=== PATIENT | female | born 1990 | race African-American/Black ===

== ENCOUNTER 2023-10-07 20:13 | Emergency (ER) | payer OTHER, SELFPAY ==
--- NOTE | ~2023-10-07 | CT_ITS ---
EXAMINATION: CT abdomen pelvis w con DATE: 10/07/2023 21:47 INDICATION: abrupt RLQ pain; appy versus torsion TECHNIQUE: Computed tomography (CT) of the abdomen and pelvis was performed with 100 mL Omnipaque-350 intravenous contrast. Automated exposure control and iterative reconstruction technique were employe d. The dose-length product was 660.20 mGy-cm. COMPARISON: Pelvic ultrasound 10/07/2023. FINDINGS: Lower thorax: Innumerable small, round, but this pulmonary air cysts. Liver: Normal. Biliary/Gallbladder: Gallbladder is normal. No bile duct dilation. Pancreas: No mass or duct dilation. Spleen: Normal. Adrenals:No mass. Kidneys: Delayed right nephrogram with mild perinephric stranding, mild hydronephrosis. Nonobstructin g punctate left lower pole calcification. GI tract: No small or large bowel dilation. Normal appendix. Mesentery/Peritoneum: No ascites, mass, or free air. Retroperitoneum: No mass. Pelvis: Punctate, 2 mm calcification in the right UVJ. The bladder is mostly empty. Normal-appearing uterus and ovaries. Soft Tissues: Soft tissues and body wall unremarkable. Bones: No acute osseous finding. IMPRESSION: 2 mm right UVJ stone causing mild obstructive uropathy. 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 Reviewed, dictated and finalized at location K. ITUTIONAL ASSET MANAGER IMPRESSION: 2 mm right UVJ stone causing mild obstructive uropathy. 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
--- NOTE | ~2023-10-07 | US_ITS ---
EXAMINATION: US pelvic complete w TV DATE: 10/07/2023 21:33 INDICATION: acute RLQ pain; concern for torsion vs ectopic -no preg test TECHNIQUE: Multiple transabdominal and endovaginal sonographic images of the pelvis were obtained. COMPARISON: None. FINDINGS: Uterus: 9.3 x 4.4 x 5.3 cm. Endometrial complex measures 3 mm. Heterogeneous and ill-defined 3.0 x 1. 6 x 2.7 cm area in the anterior uterine body/fundus. Right Ovary: 2.8 x 2.2 x 2.4 cm. Vascular flow is present. No adnexal mass. Left Ovary: 3.0 x 2.1 x 1.7 cm. Vascular flow is present. No adnexal mass. There is no free fluid in the pelvis. IMPRESSION: Ill-defined heterogeneous lesion in the anterior uterine body and fundus may represent an atypical ap pearance of a uterine fibroid or focal adenomyosis. Otherwise normal pelvic ultrasound findings. Reviewed, dictated and finalized at location K. BAKER IMPRESSION: Ill-defined heterogeneous lesion in the anterior uterine body and fundus may re present an atypical appearance of a uterine fibroid or focal adenomyosis. Otherwise normal pelvic ultrasound findings.
[2023-10-07 20:25] VITALS: BP 155/98; PULSE 107; TEMP 36.6; O2SAT 100
--- NOTE | 2023-10-07 20:50 | ED.ABDPAIN ---
HPI - Abdominal Pain General Chief Complaint: Abdominal Pain Stated Complaint: Right lower quadrant pain, vomiting Time Seen by Provider: 10/07/23 20:36 Source: patient and family (partner) Limitations: no limitations History of Present Illness HPI narrative: This is a 33-year-old -0-0-2 female who presents with acute onset right lower quadrant abdominal pain starting just prior to arrival. Patient states she was putting one of her children in [facility] when she experienced this pain acutely, approximately 1 hour ago. It is associated with nausea and she has had approximately 7 episodes of nonbloody but now bilious emesis. She states this has never happened before. Her last oral intake was dinner at approximately 6 PM. She recently had her last menstrual period which just stopped yesterday but was otherwise normal in duration flow. She does not currently have an appetite due to her pain. Her last bowel movement was earlier tonight and she denies any blood in it. She denies any nasir vaginal bleeding or discharge although she did have some light spotting earlier today which she attributed to her the tail end of her menses. Sexually active with who has had a vasectomy. Home medications include Lexapro 5mg and Vyvanse. Related Data Allergies Allergy/AdvReac Type Severity Reaction Status Date / Time No Known Allergies Allergy Verified 10/07/23 20:56 PMFSH Past Medical History Medical History Post depression Surgical History Surgical History (Updated 10/07/23 @ 22:26 by Bisi Braden MD) S/P ACL reconstruction Family History Family History Mother Epilepsy Glaucoma Kidney stone Sibling Malignant hyperthermia Social History Social History Smoking status: Never smoker Alcohol intake: current Alcohol use details: occasional/social Substance use: never Living arrangements: with family Additional living arrangements comments: and 2 children Occupation/Education: 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 Exam Const: General: healthy appearing, alert, diaphoretic (across face) and ill appearing (appears in distress) acutely; No confusion Nutritional Appearance: well nourished Orientation/consciousness: patient oriented x3 Limitations: no limitations HENMT: Head: normal to inspection Other: gross auditory acuity intact Neck: Neck: normal visual inspection Resp: Effort & Inspection: normal respiratory effort, not labored, no retractions and not tachypneic Cardio: Rate: tachycardic GI: Inspection: non-distended GI Palp: Yes Soft to palpation, Yes Tenderness to palpation present (GI), Yes Guarding due to palpation present (GI) and No Rigid due to palpation Other: Rovsing sign positive. : General: Yes bladder normal to palpation Skin: General skin exam: normal color, no jaundice and no pallor Rashes: no rashes Wounds: no wounds Neuro: General: patient oriented x3 and moves all extremities Extrem: General: normal to inspection Psych: Mental Status: mental status grossly normal Affect: normal affect Attitude: cooperative Course Vital Signs Vital signs: Vital Signs Temperature 97.9 F 10/07/23 20:25 Pulse Rate 107 H 10/07/23 20:25 Blood Pressure 155/98 H 10/07/23 20:25 Pulse Oximetry 100 10/07/23 20:25 Oxygen Delivery Room Air 10/07/23 20:25 Temperature 97.9 F 10/07/23 20:25 Pulse Rate 92 10/07/23 23:46 Respiratory Rate 15 10/07/23 23:46 Blood Pressure 104/66 10/07/23 23:46 Pulse Oximetry 100 10/07/23 23:46 Oxygen Delivery Room Air 10/07/23 20:25 MDM - Abdominal Pain MDM Narrative Medical decision making narrative: This patient presents with acute RLQ abdominal pain. Ciarra
[2023-10-07 20:51] LABS: Basophils Absolute Auto 0.1 K/mm3 (0.0-0.1); Basophils Percent Auto 0.5 % (0.2-1.2); Eosinophils Absolute Auto 0.2 K/mm3 (0-0.3); Eosinophils Percent Auto 1.7 % (0-4.4); Hemoglobin 13.8 g/dL (12.0-15.0); Immature Granulocyte Absolute 0.03 K/mm3 (0.00-0.031); Immature Granulocyte Percent A 0.3 % (0-0.5); Lymphocytes Absolute Auto 3.96 K/mm3 (0.9-3.2); Lymphocytes Percent Auto 34.9 % (18.3-44.2); Mean Corpuscular HGB Conc 32.1 g/dl (32-36); Mean Corpuscular Hemoglobin 28.3 pg (26-34); Mean Corpuscular Volume 88.3 fl (80-100); Mean Platelet Volume 9.4 fl (7.4-10.4); Monocytes Absolute Auto 0.8 K/mm3 (0.1-0.6); Monocytes Percent Auto 6.8 % (2.6-8.5); Neutrophils Absolute Auto 6.3 K/mm3 (1.3-6.7); Neutrophils Percent Auto 55.8 % (45.5-73.1); Platelet Count Result 345 k/mm3 (150-375); Red Blood Count 4.87 M/mm3 (4.2-5.4); White Blood Count 11.4 K/mm3 (4.5-10.0)
[2023-10-07] MEDS: ONDANSETRON INJ 4 MG/2 ML VIAL IV PUSH (20:56)
[2023-10-07] MEDS: MORPHINE SULFATE (*CRX) 4 MG/ML INJ IV PUSH (20:56)
[2023-10-07] MEDS: SODIUM CHLORIDE 0.9% IV 1,000 ML 999 ML IV CONT (20:57)
[2023-10-07 21:04] LABS: Alanine Aminotransferase 21 U/L (6-35); Albumin Level 4.8 g/dL (3.5-5.1); Alkaline Phosphatase 98 U/L (38-126); Anion Gap 8 mmol/L (8-16); Aspartate Amino Transferase 25 U/L (14-36); Bilirubin,Total 0.5 mg/dL (0.2-1.3); Blood Urea Nitrogen 12 mg/dL (7-17); Calcium 9.4 mg/dL (8.4-10.2); Carbon Dioxide 25 mmol/L (22-30); Chloride 106 mmol/L (98-107); Estimated CRCL calculation 86 ml/min; Estimated Glomerular Filt Rate > 60; Glucose 113 mg/dL (65-110); Lipase 120 U/L (23-300); Potassium 3.5 mmol/L (3.4-5.0); Sodium 139 mmol/L (137-145)
[2023-10-07 21:08] LABS: Appearance Urine Turbid (Clear); Bacteria Urine Rare /hpf; Bilirubin Urine Negative (Negative); Blood Urine 3+ (Negative); Color Urine Yellow (Yellow); Glucose Urine UA Negative (Negative); Ketones Urine Trace mg/dL (Negative); Leukocyte Esterase Ur Trace LEU/UL (Negative); Need Manual Microscopic Reviewed; Nitrate Urine Negative (Negative); Non Pathogenic Casts 0-2; Protein Urine Trace mg/dL (Negative); RBC Urine 51-100 /hpf (0-2); Specific Grav Ur 1.024 (1.001-1.035); Squamous Epithelial Cell Urine Moderate /hpf (Few); WBC Urine 0-5 /hpf; pH Urine 7.5 (5.0-9.0)
[2023-10-07 21:09] LABS: Add Urine Microscopic? YES
[2023-10-07 21:22] VITALS: BP 126/66; PULSE 95; RESP 18; O2SAT 100
[2023-10-07 21:47] LABS: Beta HCG Quantitative < 2.39 mIU/ML
[2023-10-07] MEDS: PROCHLORPERAZINE EDISYLATE 10 MG/2 ML VIAL IV PUSH (22:12)
[2023-10-07] MEDS: SODIUM CHLORIDE 0.9% IV 100 ML 999 ML (22:13)
[2023-10-07] MEDS: KETOROLAC 15 MG/ML VIAL (*BKC) IV PUSH (22:25)
[2023-10-07 23:46] VITALS: BP 104/66; PULSE 92; RESP 15; O2SAT 100
== END 2023-10-07 23:47 | disposition home or self-care (01) ==
PROVIDERS: Emergency Provider Student in an Organized Health Care Education/Training Program
DX: N13.9 Obstructive and reflux uropathy, unspecified (principal); N20.1 Calculus of ureter; J84.81 Lymphangioleiomyomatosis
CPT/HCPCS: 36415; 74177; 76830; 76856; 80053; 81001; 81025; 83690; 84702; 85025; 96361; 96374; 96375; 99284; J0780; J1885; J2270; J2405; J7030; Q9967

== ENCOUNTER 2023-11-21 15:46 | Emergency (ER) | payer OTHER, SELFPAY ==
[2023-11-21] VITALS (7 sets, daily range): BP systolic 132–158; BP diastolic 68–91; PULSE 95–113; RESP 12–17; TEMP 36.7–39.2; O2SAT 94–96
--- NOTE | ~2023-11-21 | CT_ITS ---
EXAMINATION: CT abdomen pelvis wo con DATE: 11/21/2023 16:55 INDICATION: R flank pain, hx stones, febrile TECHNIQUE: Computed tomography (CT) of the abdomen and pelvis was performed without intravenous contr ast. Automated exposure control and iterative reconstruction technique were employed. The dose-length product was 278.94 mGy-cm. COMPARISON: 10/07/2023. FINDINGS: Lower thorax: Multiple scattered thin-walled air cysts in the lung bases. Liver: Normal. Biliary/Gallbladder: Gallbladder is normal. No bile duct dilation. Pancreas: No mass or duct dilation. Spleen: Normal. Adrenals:No mass. Kidneys: Mild right perinephric stranding and ureteral stranding. No obstructing stone. 2 mm nonobstr ucting left lower pole calculus. No suspicious mass. GI tract: No small or large bowel dilation. Normal appendix. Mesentery/Peritoneum: No ascites, mass, or free air. Retroperitoneum: No mass. Pelvis: Unremarkable urinary bladder. Normal uterus and right ovary. New 3.5 cm simple appearing left ovarian cyst, no further follow-up required. Soft Tissues: Soft tissues and body wall unremarkable. Bones: No acute osseous finding. IMPRESSION: Mild right perinephric and periureteral stranding may represent ascending infection and/or pyelonephr itis in the appropriate clinical context. No obstructing stone or mass detected. Redemonstration of pulmonary findings as can be seen with lymphangioleiomyomatosis, recommend pulmono logy referral if not already completed. Reviewed, dictated and finalized at location K. COUNCILMAN IMPRESSION: Mild right perinephric and periureteral stranding may represent ascending infec tion and/or pyelonephritis in the appropriate clinical context. No obstructing stone or mass detected. Redemonstration of pulmonary findings as can be seen with lymphangioleiomyomato sis, recommend pulmonology referral if not already completed.
[2023-11-21] MEDS: SODIUM CHLORIDE 0.9% IV 1,000 ML 999 ML IV CONT (16:44)
[2023-11-21] MEDS: ONDANSETRON INJ 4 MG/2 ML VIAL IV PUSH (16:45)
[2023-11-21] MEDS: HYDROmorphone HCL INJ (*CRX) 1 MG/ML SYR 0.5 MG IV PUSH (16:45)
[2023-11-21 16:55] LABS: Basophils Percent Auto 0.3 % (0.2-1.2); Eosinophils Percent Auto 0.2 % (0-4.4); Hematocrit 35.1 % (37.0-47.0); Hemoglobin 11.5 g/dL (12.0-15.0); Immature Granulocyte Absolute 0.04 K/mm3 (0.00-0.031); Immature Granulocyte Percent A 0.3 % (0-0.5); Lymphocytes Absolute Auto 1.25 K/mm3 (0.9-3.2); Lymphocytes Percent Auto 9.8 % (18.3-44.2); Mean Corpuscular HGB Conc 32.8 g/dl (32-36); Mean Corpuscular Hemoglobin 28.6 pg (26-34); Mean Corpuscular Volume 87.3 fl (80-100); Mean Platelet Volume 9.1 fl (7.4-10.4); Monocytes Absolute Auto 1.7 K/mm3 (0.1-0.6); Monocytes Percent Auto 12.9 % (2.6-8.5); Neutrophils Absolute Auto 9.8 K/mm3 (1.3-6.7); Neutrophils Percent Auto 76.5 % (45.5-73.1); Platelet Count Result 276 k/mm3 (150-375); Red Blood Count 4.02 M/mm3 (4.2-5.4); Red Cell Distribution Width 12.6 % (11.5-14.5); White Blood Count 12.8 K/mm3 (4.5-10.0)
--- NOTE | 2023-11-21 16:56 | ED.GENADULT ---
HPI - General Adult General Chief complaint: Fever Stated complaint: kidney stone Time Seen by Provider: 11/21/23 16:13 Source: patient Mode of arrival: ambulatory Limitations: no limitations History of Present Illness HPI narrative: Patient is a 33-year-old female, w/ past medical history of kidney stones, who presents to the ED with report of right flank pain and fevers. Patient reports she developed pain 10 days ago in her right flank. She denies pain radiating to abdomen. She had Hx of stones and states pain felt similar. She has previously been able to pass the stones on her own so tried to wait it out. States over the last 4 days, she has had fevers at home, up to 103F today which prompted her presentation. She has been taking Tylenol and Ibuprofen for fevers. Last took these at 1:30 p.m. Denies nausea, vomiting, dysuria, hematuria, cough, cold symptoms. Related Data Allergies Allergy/AdvReac Type Severity Reaction Status Date / Time No Known Allergies Allergy Verified 10/07/23 20:56 Review of Systems Review of Systems: CONSTITUTIONAL: See HPI. ENT: Denies rhinorrhea, congestion, sore throat. CARDIOVASCULAR: Denies chest pain. RESPIRATORY: Denies cough. GASTROINTESTINAL: Denies abdominal pain, nausea, vomiting, or diarrhea. GENITOURINARY: Denies dysuria or hematuria. MUSCULOSKELETAL: See HPI. NEUROLOGIC: Denies headache, dizziness, numbness, or weakness. 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 HEAD: Normocephalic, atraumatic. RESPIRATORY: Airway patent, respirations nonlabored. Clear to auscultation bilaterally, no rales, rhonchi, wheezing. CARDIOVASCULAR: Borderline tachycardic with regular rhythm without murmurs, rubs, or gallops. ABDOMINAL: Soft, no tenderness throughout abdomen, nondistended. Normoactive BS. +CVA tenderness on R. MUSCULOSKELETAL: Moves all extremities. No gross deformities. SKIN: Warm, dry, mildly flushed and diaphoretic. NEURO: A&O X3. Speech clear. Cranial nerves II-XII grossly intact. Steady gait. No ataxic movements. PSYCHIATRIC: Appropriate mood and affect. Normal interaction. Course Vital Signs Vital signs: Vital Signs Temperature 102.6 F H 11/21/23 16:01 Pulse Rate 113 H 11/21/23 16:01 Respiratory Rate 16 11/21/23 16:01 Blood Pressure 138/86 11/21/23 16:01 Pulse Oximetry 96 11/21/23 16:01 Oxygen Delivery Room Air 11/21/23 16:01 Temperature 98.1 F 11/21/23 18:17 Pulse Rate 104 H 11/21/23 18:17 Respiratory Rate 14 11/21/23 18:17 Blood Pressure 158/68 H 11/21/23 18:17 Pulse Oximetry 96 11/21/23 18:09 Oxygen Delivery Room Air 11/21/23 16:01 Medical Decision Making [facility] Narrative Medical decision making narrative: Patient presented to ED with flank pain x1 week, 4 day history of fevers. History of kidney stones. Patient tachycardic and febrile upon arrival. She had taken Tylenol and ibuprofen prior to arrival, not due for next dose yet. Fluids initiated. CBC with ryan
[2023-11-21 17:02] LABS: Lactic Acid Reflex 0.7 mmol/L (0.7-2.0)
[2023-11-21 17:03] LABS: Alanine Aminotransferase 27 U/L (6-35); Albumin Level 3.9 g/dL (3.5-5.1); Alkaline Phosphatase 122 U/L (38-126); Anion Gap 6 mmol/L (8-16); Aspartate Amino Transferase 27 U/L (14-36); Bilirubin,Total 0.4 mg/dL (0.2-1.3); Blood Urea Nitrogen 7 mg/dL (7-17); Calcium 8.9 mg/dL (8.4-10.2); Carbon Dioxide 25 mmol/L (22-30); Chloride 108 mmol/L (98-107); Estimated CRCL calculation 124 ml/min; Estimated Glomerular Filt Rate > 60; Glucose 102 mg/dL (65-110); Potassium 3.5 mmol/L (3.4-5.0); Sodium 139 mmol/L (137-145)
[2023-11-21 17:09] LABS: Appearance Urine Clear (Clear); Bacteria Urine None Seen /hpf; Bilirubin Urine Negative (Negative); Blood Urine 2+ (Negative); Color Urine Yellow (Yellow); Glucose Urine UA Negative (Negative); Ketones Urine Negative (Negative); Leukocyte Esterase Ur 1+ LEU/UL (Negative); Nitrate Urine Negative (Negative); Non Pathogenic Casts 0-2; Protein Urine 1+ mg/dL (Negative); RBC Urine 21-50 /hpf (0-2); Specific Grav Ur 1.017 (1.001-1.035); Squamous Epithelial Cell Urine Occasional /hpf (Few); WBC Urine 21-50 /hpf; pH Urine 6.5 (5.0-9.0)
[2023-11-21 17:10] LABS: INR 1.1; Prothrombin Time 14.7 Seconds (11.1-14.7)
[2023-11-21 17:11] LABS: Partial Thromboplastin Time 43.2 SECONDS (22.3-36.8)
[2023-11-21 17:12] LABS: Add Urine Microscopic? YES
[2023-11-21 18:55] LABS: Influenza A QL RT-PCR Negative (Negative); Influenza B QL RT-PCR Negative (Negative); RSV RNA, RT-PCR Negative (Negative); SARS-CoV-2 RNA PCR Negative (Negative)
== END 2023-11-21 19:13 | disposition home or self-care (01) ==
PROVIDERS: Emergency Provider Physician Assistant
DX: N10 Acute pyelonephritis (principal); Z20.822 Contact with and (suspected) exposure to COVID-19
CPT/HCPCS: 36415; 74176; 80053; 81001; 83605; 85025; 85610; 85730; 87040; 87077; 87086; 87186; 87637; 96361; 96365; 96375; 99284; J0696; J1170; J2405; J7030